=== PATIENT | female | born 1945 | race Caucasian/White ===

== ENCOUNTER 2019-02-24 05:41 | Day surgery (SDC) | payer MEDICARE, OTHER ==
[~2019-02-24] VITALS: Ht 172.7 cm; Wt 77.3 kg
[2019-02-24] MEDS ORDERED: SODIUM CHLORIDE 0.9% 500 ML IV PRN (06:11)
[2019-02-24 06:16] VITALS: BP 136/93
[2019-02-24] MEDS ORDERED: AMLO2.5T5 PO (06:37)
[2019-02-24] MEDS ORDERED: METO25TA91 PO (06:37)
[2019-02-24] MEDS ORDERED: LOVA40TA2 PO (06:37)
[2019-02-24] MEDS ORDERED: LISI-170 PO (06:37)
[2019-02-24] MEDS ORDERED: LEVO25TA4 PO (06:37)
[2019-02-24] MEDS ORDERED: RIVA20TA PO (06:37)
[2019-02-24] MEDS ORDERED: FLEC100T PO (06:37)
[2019-02-24 07:21] LABS: ANION GAP 7 mmol/L (5-15); CALCIUM 9.5 mg/dL (8.5-10.1); CHLORIDE 112 mmol/L (98-107)
[2019-02-24 07:23] LABS: CREATININE 1.05 mg/dL (0.55-1.02)
[2019-02-24] MEDS ORDERED: PROPOFOL 10 MG/ML, 20ML ONE (10:26)
== END 2019-02-24 09:26 | disposition home or self-care (01) ==
LOC: EDSEX 05:41 → CACL 05:41
PROVIDERS: ATTEND Internal Medicine Cardiovascular Disease
DX: I48.0 Paroxysmal atrial fibrillation (principal); I10 Essential (primary) hypertension; I34.0 Nonrheumatic mitral (valve) insufficiency; Z88.1 Allergy status to other antibiotic agents
CPT/HCPCS: 36415; 80048; 92960; 93005; J2704